=== PATIENT | female | born 1980 | race Caucasian/White ===

== ENCOUNTER 2016-07-11 05:36 | Inpatient (IN) | payer BC ==
--- NOTE | 2016-06-24 09:31 | PAT Medication Instructions ---
Service Date Jun 24, 2016. Current Home Medication List Levonorgestrel & Eth Estradiol (Kurvelo), 1 TAB PO DAILY Sertraline (Zoloft), 50 MG PO DAILY Medication Instructions For Your Scheduled Surgery - Take the following medications the morning of surgery with a sip of water: Levonorgestrel & Eth Estradiol (Kurvelo), 1 TAB PO DAILY Sertraline (Zoloft), 50 MG PO DAILY If you have any questions please call us at [phone] or [phone] or [phone]
--- NOTE | 2016-06-24 10:12 | DIAGNOSTIC IMAGING REPORT ---
CHEST PREADMISSION(PA/LAT) CLINICAL HISTORY: Preoperative evaluation. COMPARISON STUDY: No previous studies for comparison. FINDINGS: Lung volumes are normal. Lungs are clear. There is no pneumothorax or pleural effusion. Cardiac size is normal. Mediastinal contours are normal. Pulmonary vascularity is normal. IMPRESSION: No acute cardiopulmonary findings. Electronically signed by: Rickey Elliott M.D. 06/24/2016 10:11 AM
[2016-06-24 10:39] LABS: BASO % 0.1 %; BASO ABS # 0.01 K/uL (0-0.2); COMPLETE YES; EOS % 0.9 %; HEMATOCRIT 38.3 % (37-47); IG% 0.3 %; LYMPH % 15.9 %; LYMPH ABS # 1.19 K/uL (1.2-3.4); MEAN CELL VOLUME 87.6 fL (80-100); MEAN CORPUSCULAR HEMOGLOBIN 29.7 pg (25-34); MEAN CORPUSCULAR HGB CONC 33.9 g/dl (32-36); MEAN PLATELET VOLUME 9.8 fL (7.4-10.4); MONO % 9.4 %; NEUT % 73.4 %; PLATELET COUNT 304 K/uL (130-400); RED BLOOD COUNT 4.37 M/uL (4.2-5.4); WHITE BLOOD COUNT 7.47 K/uL (4.8-10.8)
[2016-06-24 10:47] LABS: URINE APPEARANCE CLEAR (CLEAR); URINE BILIRUBIN NEG (NEG); URINE COLOR YELLOW; URINE EPITHELIAL CELL AUTO >30 /lpf (0-5); URINE NITRITE NEG (NEG); URINE SPECIFIC GRAVITY 1.019 (1.000-1.030); UROBILINOGEN NEG (NEG)
[2016-06-24 10:54] LABS: MANUAL MICROSCOPIC REQUIRED? NO; REVIEW REQ? NO
[2016-06-24 11:02] LABS: BLOOD UREA NITROGEN 11 mg/dl (7-18); BUN/CREATININE RATIO 16.4 (10-20); CALCIUM 8.3 mg/dl (8.5-10.1); CARBON DIOXIDE 26 mmol/L (21-32); CHLORIDE 106 mmol/L (98-107); CREATININE 0.69 mg/dl (0.60-1.20); GLUCOSE 79 mg/dl (70-99); SODIUM 140 mmol/L (136-145)
[2016-06-24 11:35] VITALS: BMI 26.1
[2016-06-24 11:42] VITALS: BMI 26.0
--- NOTE | 2016-07-07 09:15 | HISTORY & PHYSICAL EXAMINATION ---
DATE OF ADMISSION: 07/11/2016 HISTORY OF PRESENT ILLNESS: The patient presents to our office with a complaint of left shoulder pain down her left arm. It involves the triceps to the elbow, occasionally extends into her hand. Right upper extremity is asymptomatic. Activities such as sleeping, sitting and turning her head to the left reproduce her symptoms. She is most comfortable lying down or constantly changing positions. Denies loss of balance. She has trialed a Medrol Dosepak without relief. Denies bowel or bladder dysfunction. She is right hand dominant. She denies loss of coordination or dexterity bilaterally. Does not describe Lhermitte phenomenon. She has trialed massage therapy as well as cervical epidural injections with Dr. Ramírez few weeks ago which have exacerbated her symptoms. She is still working full capacity at [employer]. She takes Tylenol for pain control. PAST MEDICAL HISTORY: Significant for depression. PAST SURGICAL HISTORY: None. ALLERGIES: None listed. MEDICATIONS: Include Zoloft, unknown dosage as well as unknown control pill. SOCIAL HISTORY: She works in the [employer]. She is . Denies alcohol. Denies tobacco. FAMILY HISTORY: Contributory for diabetes and cancer. REVIEW OF SYSTEMS: Significant for neck pain and muscle weakness. PHYSICAL EXAMINATION: VITAL SIGNS: 5 feet 4, 145 pounds. HEAD, EYES, EARS, NOSE, AND THROAT: Speech appropriate. CARDIOPULMONARY: No gross abnormalities. ABDOMEN: Soft, nontender. GENITOURINARY: Deferred. NEUROLOGIC: Cranial nerves II-XII grossly intact. MUSCULOSKELETAL: She ambulates with an independent steady gait. Negative Romberg, negative ankle clonus and Babinski. Negative Pa sign bilaterally. Sensation to light touch is equal and intact bilaterally. She has breakaway weakness over the left tricep, otherwise strength is intact. Positive Spurling's to the left, negative Lhermitte's. ASSESSMENT: 1. Severe left-sided C6-C7 neural foraminal stenosis due to a disc herniation, no myelomalacia. 2. Herniated nucleus pulposus C6-C7, foraminal stenosis C6-C7 left, left radiculopathy. PLAN: At this point in time, she has failed conservative therapy and may consider surgical intervention which would require anterior cervical discectomy and fusion at C6-C7. Risks, benefits, pros, cons, alternative outlined in detail. She would like to proceed with above mentioned surgical intervention as soon as possible.
[2016-07-11] VITALS (16 sets, daily range): BP systolic 113–142; BP diastolic 67–97; PULSE 79–96; TEMP 36.5–37.1; O2SAT 98–100; Ht 162.6 cm; Wt 68.9 kg
[~2016-07-11] VITALS: Ht 162.6 cm; Wt 68.9 kg
[~2016-07-11 05:36] MED LIST: CEFAZOLIN 1000MG/55 ML D5W IV SCH; LACTATED RINGER'S 1000ML 1,000 ML IV SCH; LEVO-253 PO; SERT50TA PO
[2016-07-11] MEDS ORDERED: ACET-1256 PO (05:53)
[2016-07-11] MEDS ORDERED: LACTATED RINGER'S 1000ML 1,000 ML IV SCH (06:00)
[2016-07-11] MEDS ORDERED: CEFAZOLIN 1000MG/55 ML D5W IV SCH (06:00)
[2016-07-11] MEDS ORDERED: NEOSTIGMINE METHYLSULFATE 1 MG/ML 10ML VIAL ONE (06:32)
[2016-07-11] MEDS ORDERED: MIDAZOLAM HCL 1 MG/ML 2ML VIAL ONE (06:32)
[2016-07-11] MEDS ORDERED: PROPOFOL IV EMULSION 10 MG/ML 20 ML VIAL IV ONE (06:32)
[2016-07-11] MEDS ORDERED: ROCURONIUM BROMIDE 10 MG/ML 5 ML VIAL ONE (06:32)
[2016-07-11] MEDS ORDERED: GLYCOPYRROLATE INJ 0.2 MG/ML VIAL ONE (06:32)
[2016-07-11] MEDS ORDERED: FENTANYL CITRATE INJ 50 MCG/1 ML 2 ML VIAL ONE (06:32)
[2016-07-11] MEDS ORDERED: DEXAMETHASONE SOD INJ 4 MG/ML VIAL ONE (06:32)
[2016-07-11] MEDS ORDERED: LARYING-O-JET KIT (LTA) EXT ONE ×2 (06:32)
[2016-07-11] MEDS ORDERED: ONDANSETRON INJ 2 MG/ML 2 ML VIAL ONE (06:32)
[2016-07-11] MEDS ORDERED: LIDOCAINE HCL 2% 2 ML VIAL (20MG/ML) ONE (06:32)
[2016-07-11] MEDS ORDERED: MoRPHine SULFATE 10 MG/ML CARP/VIAL IV PRN (07:00)
[2016-07-11] MEDS ORDERED: EpHEDrine SULFATE INJ 50 MG/ML AMP IV PRN (07:00)
[2016-07-11] MEDS ORDERED: ATROPINE SULFATE 0.1 MG/ML 5ML SYR IV PRN (07:00)
[2016-07-11] MEDS ORDERED: ONDANSETRON INJ 2 MG/ML 2 ML VIAL IV PRN ×2 (07:00→09:00)
--- NOTE | 2016-07-11 07:28 | History & Physical Bridge Note ---
H&P Re-Evaluation Bridge Note: I have examined the patient, reviewed the History & Physical and in the interval since the performance of the History & Physical I have noted the following changes of clinical significance: No changes noted
[2016-07-11] MEDS ORDERED: EpHEDrine SULFATE 50MG/5ML SYR ONE (08:08)
[2016-07-11] MEDS ORDERED: PHENYLEPHRINE 100MCG/ML 5ML SYR ONE (08:14)
[2016-07-11] MEDS: LACTATED RINGER'S 1000ML 1,000 ML IV SCH ×2 (08:47→21:31)
[2016-07-11] MEDS ORDERED: BACITRACIN 50000 UNIT VIAL IR ONE (08:55)
[2016-07-11] MEDS ORDERED: FLOSEAL HEMOSTATIC MATRIX 5ML TOP ONE (08:55)
[2016-07-11] MEDS ORDERED: HYDROmorphone INJ 0.5 MG/0.5 ML SYR IV PRN ×2 (09:00→13:15)
[2016-07-11] MEDS ORDERED: MAGNESIUM HYDROXIDE SUSP 30 ML UDC PO PRN (09:00)
[2016-07-11] MEDS ORDERED: OXYCODONE HCL IR 5 MG TAB (IMMEDIATE RELEASE) PO PRN (09:00)
[2016-07-11] MEDS ORDERED: LORAZEPAM INJ 0.5 MG in SYRINGE 0.75 ML IV PRN (09:00)
[2016-07-11] MEDS ORDERED: DO NOT ADMINISTER FLU VACCINE PRN ×3 (09:00)
[2016-07-11] MEDS ORDERED: ACETAMINOPHEN IV 100 ML IV PRN (09:00)
[2016-07-11] MEDS ORDERED: DO NOT ADMINISTER PNEUMOCOCCAL VACCINE PRN ×2 (09:00)
[2016-07-11] MEDS ORDERED: NALOXONE HCL 0.4 MG/1 ML VIAL/CARP IV PRN (09:00)
[2016-07-11] MEDS ORDERED: LORAZEPAM 0.5 MG TAB PO PRN (09:00)
[2016-07-11] MEDS ORDERED: DEXAMETHASONE INJ 8 MG in SYRINGE 0 ML IV PRN (09:00)
[2016-07-11] MEDS ORDERED: DiphenhydrAMINE HCL 50 MG/ML VIAL IV PRN (09:00)
[2016-07-11] MEDS ORDERED: RACEPINEPHRINE 2.25% NEBU SOLN 0.5 ML VIAL INH PRN (09:00)
[2016-07-11] MEDS: DOCUSATE SODIUM 100 MG CAP PO SCH ×2 (09:00→21:31)
--- NOTE | 2016-07-11 09:10 | OPERATIVE REPORT ---
DATE OF OPERATION: 07/11/2016 PREOPERATIVE DIAGNOSIS: Herniated nucleus pulposus, C6-C7 with radiculopathy. POSTOPERATIVE DIAGNOSIS: Same. PROCEDURE PERFORMED: 1. Anterior cervical discectomy, bilateral foraminotomy C6-C7. 2. Anterior cervical arthrodesis, C6-C7. 3. Placement of Cornerstone cortical allograft filled with Progenix, 8 mm in height, at C6-C7. 4. Application of Machuca plate and screws across C6-C7. SURGEON: Dr. Stepan Villalobos. FARMWORKER: FRANCIS Felipe. ANESTHESIA: General. DISPOSITION: The patient awakened and taken to PACU in stable condition. HISTORY OF PATIENT'S PROBLEMS: This is a 36-year-old female that presents with the above-mentioned diagnosis. After failing an extensive course of nonoperative care, elected to undergo the above-mentioned procedure. Risks, benefits, pros, cons, and alternatives were outlined in detail preoperatively. PROCEDURE: The patient was met preoperatively and the case discussed and all questions were addressed. At that point the patient was taken back to operative suite and after undergoing successful general intubation by the department of anesthesia was placed in supine position on Santhosh table with head in [place]aux headrig sawyer. All bony prominences were well padded and the eyes were inspected to ensure there was no external pressure placed upon them. At this point the anterior cervical spine was prepped and draped in a normal sterile fashion. With the assistance of fluoroscopy I identified the C6-C7 disc space. A transverse incision was placed along the right anterior aspect of the cervical spine overlying this region. Sharp dissection with the assistance of bipolar electrocautery was performed down to and exposing the anterior cervical spine at C6-7. A self-retaining retractor was placed. We verified our position with fluoroscopy. A complete discectomy of C6-C7 was then performed out to the uncovertebral joints bilaterally. [place] distracting pins were utilized to assist us in our visualization. I did remove all posterior annular fibers, longitudinal ligament, providing significant decompression. Endplates were then burred to subcortical bleeding bone and an 8 mm cortical autograft filled with Progenix tapped into position. The distracting apparatus was removed. Machuca plate and screws applied with the assistance of fluoroscopy and the incision copiously irrigated, explored to ensure there was no damage to surrounding structures or remaining bleeding. A 10 round PACO drain inserted. It was then closed with 2-0 Vicryl in the fascia, 4-0 Monocryl for final skin closure. Steri-Strips and sterile dressing placed. The patient was awakened and taken to PACU in stable condition. Due to the complex nature of the procedure, the entire surgery was performed with the operational assistance of FRANCIS Felipe. The patient clerical assistant, under direct supervision, was involved in the actual performance of all aspects of the surgical procedure including hemostasis, tissue retraction and incision, instrument management, patient positioning, and wound closure. I attest to the content of the Intraoperative Record and any orders documented therein. Any exceptio ns are noted below.
[2016-07-11] MEDS: FENTANYL CITRATE INJ 50 MCG/1 ML 2 ML VIAL IV PRN ×2 (09:12→09:32)
--- NOTE | 2016-07-11 09:12 | DIAGNOSTIC IMAGING REPORT ---
INTRAOPERATIVE RADIOGRAPHS CLINICAL HISTORY: C6-C7 spinal fusion. Fluoroscopy time: 13 seconds. FINDINGS: 3 spot fluoroscopic views of the cervical spine are presented. An endotracheal tube is in place. There are changes from discectomy at C6-C7 with anterior fusion at this level. The orthopedic hardware appears intact. IMPRESSION: Intraoperative images from C6 -C7 spinal fusion as above. Electronically signed by: Chucky Barton M.D. 07/11/2016 9:10 AM Dictated Date/Time: 07/11/2016 9:09 AM
--- NOTE | 2016-07-11 10:15 | Anesthesiology Progress Note ---
Anesthesia Post Op Note Date & Time Jul 11, 2016 at 10:15 Vital Signs Pain Intensity: 3 Vital Signs Past 12 Hours Date Time Temp Pulse Resp B/P Pulse Ox O2 Delivery O2 Flow Rate FiO2 07/11/16 10:00 36.4 90 23 138/89 100 Nasal Cannula 2 07/11/16 09:50 92 18 135/77 100 Nasal Cannula 2 07/11/16 09:40 92 19 127/80 100 Nasal Cannula 2 07/11/16 09:30 89 17 131/74 100 Nasal Cannula 2 07/11/16 09:20 87 17 119/74 100 Mask 10 07/11/16 09:10 64 14 106/64 100 Mask 10 07/11/16 09:01 36.7 108 14 130/82 100 Mask 10 07/11/16 05:57 37.1 92 16 142/97 99 Room Air Notes Mental Status: alert / awake / arousable, participated in evaluation Pt Amnestic to Procedure: Yes Nausea / Vomiting: adequately controlled Pain: adequately controlled Airway Patency, RR, SpO2: stable & adequate BP & HR: stable & adequate Hydration State: stable & adequate Anesthetic Complications: no major complications apparent
[2016-07-11] MEDS ORDERED: RXC5 PO (12:36)
--- NOTE | 2016-07-11 12:37 | Discharge Instructions ---
Discharge Instructions Admission Reason for Admission: Cervical Spinal Stenosis Discharge Discharge Diagnosis / Problem: stenosis Discharge Goals Goal(s): Improve function Activity Recommendations Activity Limitations: per Instructions/Follow-up section ACTIVITY RECOMMENDATIONS: SELF CARE INSTRUCTIONS AFTER CERVICAL FUSIONS 1. No smoking. Smoking drastically decreases the chance of a solid fusion. 2. No bending, lifting more than 5 pounds, or twisting (roll like a log when turning in bed). 3. You may shower 3 days after surgery. Thoroughly dry wound. Do not soak in the tub. 4. Cervical collar: Must be worn at all times including sleeping. You may remove the brace only to bath, eat and if you are sitting in a recliner. 5. Please walk as much as you can for exercise. Gradually increase the distance that you walk as your endurance increases. SPECIAL CARE INSTRUCTIONS: VERY IMPORTANT TO READ AND REVIEW A. Do not take any anti-inflammatory medications (i.e. Indocin, Advil, Aspirin, Naprosyn, Aleve, Motrin, etc.) as these may inhibit the chance of a solid fusion. Tylenol is okay to take. B. Your surgical incision has been closed with a cosmetic suture under the skin that will dissolve in about 6 weeks. In 14 days, you can use a pair of clean scissors and cut the suture that is left outside of the skin at the ends of your incision. C. Complications are uncommon, but please contact us if you have any signs or symptoms of: 1. wound infection (fever higher than 102.5 degrees F, redness, separation of wound, drainage, or increasing pain from the incision) 2. blood clots in legs (pain, swelling, redness and warmth in legs) 3. urinary tract infection (fever higher than 102.5 degrees, burning upon urination or increased frequency of urination) 4. nerve problems (inability to walk on your toes or heels, numbness, loss of bowel or bladder control) 5. any other symptoms that concern you. D. Please call the office at if you have any concerns or questions about your operation or recovery. MANAGING PAIN AFTER SPINAL SURGERY 1. Narcotic medication is intended for short-term use and will be provided for surgical pain. Surgical pain usually lasts for a period of 4-6 weeks. Narcotic medication includes Percocet, Vicodin, Darvocet, Tylenol #3 or Lortab. 2. Longer-term pain is more appropriately treated with non-narcotic medication such as Tylenol ES. 3. Muscle spasm is not appropriately treated with narcotics. Muscle relaxers such as Soma, Flexeril or Skelaxin can be used along with Tylenol ES. 4. Remember that we all live with some "aches and pains". This is not unusual or uncommon after an injury or as we get older. 5. We will provide appropriate medication within the normal guidelines of their prescribed use. We will also be very cautious and aware of potential abuse and extended duration of patients' medication needs. 6. Please allow 2-3 days to process refills. Prescriptions will not be mailed but must be picked up at the office. FOLLOW UP VISIT: Keep your scheduled follow-up appointment. Any questions, please call the office at . . Current Hospital Diet Patient's current hospital diet: Clear Liquid Diet Discharge Diet Recommended Diet: Regular Diet Procedures Procedures Performed: C6-C7 Anterior Cervical Discectomy and Fusion; Removal of Interverterbral Disc/Decompression; Placement of Prosthetic Spacer/Allograft, Anterior Plate and Screw Fixation Pending Studies Studies pending at discharge: no Medical Emergencies . Who to Call and When: Medical Emergencies: If at any time you feel your situation is an emergency, please call 911 immediately. . Non-Emergent Contact Non-Emergency issues call your: Primary Care Provider . "Provider Documentation" section prepared by Stepan Villalobos. VTE Core Measure Inpt VTE Proph given/why not?: Yamila Davis, SCD's
[2016-07-11] MEDS ORDERED: SCOPOLAMINE 1.5 MG TDSY TD SCH (13:00)
[2016-07-11] MEDS ORDERED: HYDROmorphone INJ 1 MG/ML SYR IV PRN (13:15)
[2016-07-11] MEDS: DEXAMETHASONE INJ 6 MG in SYRINGE 0 ML IV SCH ×2 (13:49→21:41)
[2016-07-11] MEDS: CHECK SCOPOLAMINE PATCH PLACEMENT SCH ×2 (15:58→23:23)
[2016-07-11] MEDS: CEFAZOLIN IV 1,000 MG in DEXTROSE 5% 50ML 50 ML IV SCH ×2 (15:58→23:23)
[2016-07-12] VITALS (8 sets, daily range): BP systolic 101–121; BP diastolic 65–77; PULSE 68–90; TEMP 36.7–36.9; O2SAT 97–100
[2016-07-12] MEDS: DEXAMETHASONE INJ 6 MG in SYRINGE 0 ML IV SCH (05:59)
[2016-07-12] MEDS: CHECK SCOPOLAMINE PATCH PLACEMENT SCH (07:44)
[2016-07-12] MEDS: CEFAZOLIN IV 1,000 MG in DEXTROSE 5% 50ML 50 ML IV SCH (07:44)
--- NOTE | 2016-07-12 08:25 | DISCHARGE SUMMARY ---
PRINCIPAL DIAGNOSIS: Cervical spondylosis with mild radiculopathy. HOSPITAL COURSE FOLLOWS: On 07/11/2016, the patient underwent anterior cervical discectomy and fusion C6-C7, tolerated this well and taken to the orthopedic floor postoperatively. On postop day #1, she was up and ambulatory, arm pain improved. Swallowing without difficulty. No hoarseness. Subsequently discharged home. Discharge orders and instructions found on the chart for further review.
[2016-07-12] MEDS: DOCUSATE SODIUM 100 MG CAP PO SCH (08:26)
[2016-07-12] MEDS ORDERED: SERTRALINE HCL 50 MG TAB PO SCH (09:00)
[2016-07-13] MEDS ORDERED: BISACODYL 5 MG TABEC PO PRN (06:00)
[2016-07-13] MEDS ORDERED: BISACODYL 10 MG SUPP PR PRN (06:00)
[2016-07-13] MEDS ORDERED: POLYETHYLENE (MIRALAX) 17 GM PACK PO SCH (09:00)
--- NOTE | 2016-07-13 10:56 | Anesthesiology Progress Note ---
Anesthesia Post Op Note Date & Time Jul 13, 2016 at 10:55 Vital Signs Pain Intensity: 0.0 Notes Mental Status: alert / awake / arousable, participated in evaluation Pt Amnestic to Procedure: Yes Nausea / Vomiting: adequately controlled Pain: adequately controlled Airway Patency, RR, SpO2: stable & adequate BP & HR: stable & adequate Hydration State: stable & adequate Anesthetic Complications: no major complications apparent
== END 2016-07-12 11:13 | disposition home or self-care (01) | DRG 473 ==
LOC: ENRESERVTM → ENRESERVDT → C.ACU 05:36 → C.3E 07:00
PROVIDERS: ADMIT Orthopaedic Surgery Orthopaedic Surgery of the Spine; ATTEND Orthopaedic Surgery Orthopaedic Surgery of the Spine
PROC: 0RG1070 Fusion of Cervical Vertebral Joint with Autologous Tissue Substitute, Anterior Approach, Anterior Column, Open Approach (ICD-10-PCS; principal; 2016-07-11 07:30)
PROC: 0RT30ZZ Resection of Cervical Vertebral Disc, Open Approach (ICD-10-PCS; principal; 2016-07-11 07:30)
DX: M50.223 Other cervical disc displacement at C6-C7 level (principal); M48.02 Spinal stenosis, cervical region; M47.22 Other spondylosis with radiculopathy, cervical region; F32.9 Major depressive disorder, single episode, unspecified; Z83.3 Family history of diabetes mellitus